=== PATIENT | female | born 1980 | race Caucasian/White ===

== ENCOUNTER → 2018-07-05 | Outpatient (CLI) | payer OTHER ==
[~2018-07-05] MED LIST: MOTRIN 600600 MG/TAB PO; PRENATAL1 TA2 PO
== END ==
LOC: MC.RAD 12:30
DX: N63.23 Unspecified lump in the left breast, lower outer quadrant (principal)
CPT/HCPCS: G0279

== ENCOUNTER → 2019-10-12 | Outpatient (CLI) | payer OTHER | LOC: MC.RAD 16:05 | DX: Z12.31 Encounter for screening mammogram for malignant neoplasm of breast (principal) ==

== ENCOUNTER → 2020-11-15 | Outpatient (CLI) | payer OTHER ==
[~2020-11-15] MED LIST changes: +FIORICET 325 MG1 TA1 PO; +SPRINTEC 35 MCG1 TAB PO
== END ==
LOC: MC.RAD 14:15
DX: Z12.31 Encounter for screening mammogram for malignant neoplasm of breast (principal)

== ENCOUNTER 2021-04-21 10:28 | Emergency (ER) | payer OTHER ==
[~2021-04-21] VITALS: Ht 172.7 cm; Wt 81.8 kg
[~2021-04-21 10:28] MED LIST changes: -FIORICET 325 MG1 TA1 PO; -SPRINTEC 35 MCG1 TAB PO
[2021-04-21 10:37] VITALS: TEMP 98.7
[2021-04-21 10:58] LABS: COLLECTION METHOD CLEAN CATCH
[2021-04-21 11:09] LABS: PH 6 (5-8); URINE APPEARANCE Clear; URINE BACTERIA None Seen /hpf; URINE BILIRUBIN Negative (NEGATIVE); URINE BLOOD 1+ (NEGATIVE); URINE COLOR Straw; URINE GLUCOSE Negative (NEGATIVE); URINE KETONE Negative (NEGATIVE); URINE LEUKOCYTE ESTERASE Negative (NEGATIVE); URINE NITRATE Negative (NEGATIVE); URINE PROTEIN(semi-quant) Negative (NEGATIVE); URINE RBC 0-2 /hpf; URINE UROBILINOGEN Negative (NEGATIVE)
[2021-04-21 11:11] LABS: MUCOUS Present /lpf; SQUAMOUS EPITHELIAL 0-2 /hpf
[2021-04-21 11:35] LABS: INR 0.9 (0.8-3.0); PROTHROMBIN TIME 10.1 SECONDS (9.7-12.8)
[2021-04-21 11:36] LABS: BASO % 0.3 % (0.0-2.0); EOS # 0.1 (0.0-0.7); GRAN # 3.8 (1.4-6.5); GRAN % 62.7 % (42.2-75.2); HEMATOCRIT 39.2 % (37.0-47.0); HEMOGLOBIN 13.1 g/dl (12.5-16.0); LYMPH # 1.8 (1.2-3.4); LYMPH % 30.1 % (20.0-51.0); MEAN CELL VOLUME 93 fl (80.0-100.0); MEAN CORPUSCULAR HEMOGLOBIN 31 pg (27.0-31.0); MEAN CORPUSCULAR HGB CONC 33 g/dl (33.0-37.0); MONO # 0.3 (0.1-0.6); MONO % 5.6 % (1.7-9.3); PLATELET COUNT 176 K/mm3 (130-400); RED BLOOD COUNT 4.22 M/mm3 (4.10-5.30); REDCELL DISTRIBUTION WIDTH-CV 12.8 % (11.5-14.5)
[2021-04-21 11:38] LABS: ALBUMIN 4.5 gm/dL (3.5-5.0); BILIRUBIN,TOTAL 0.2 mg/dL (0.0-1.0); CALCIUM 9.2 mg/dL (8.4-10.2); CREATININE, serum 0.78 (0.52-1.25); POTASSIUM 4.5 mmol/L (3.4-5.0); TOTAL PROTEIN 7.9 gm/dL (6.4-8.2)
[2021-04-21] MEDS ORDERED: SPRINTEC 35 MCG1 TAB PO (12:04)
[2021-04-21 16:28] LABS: GLUCOSE,CSF 54 mg/dL (40-70); TOTAL PROTEIN,CSF 50 mg/dL (15-45)
[2021-04-21] MEDS ORDERED: FIORICET 325 MG1 TA1 PO ×3 (17:27→18:10)
[2021-04-21 17:54] VITALS: BP 116/72; PULSE 76
[2021-04-21 19:39] LABS: CSF APPEARANCE CLEAR; CSF COLOR COLORLESS; CSF MONONUCLEAR 100 % (70-100); CSF POLYMORPHONUCLEAR 0 % (0-6); CSF RBC < 1 /mm3 (0-0)
[2021-04-21 19:40] LABS: CSF APPEARANCE CLEAR; CSF COLOR COLORLESS; CSF POLYMORPHONUCLEAR 0 % (0-6); CSF RBC 1 /mm3 (0-0)
[2021-04-21 19:41] LABS: CSF MONONUCLEAR 100 % (70-100)
== END 2021-04-21 17:56 | disposition home or self-care (01) ==
LOC: COL.ER 10:28
PROVIDERS: Personal Emergency Response Attendant; Physician Assistant
DX: R51.9 Headache, unspecified (principal); R20.2 Paresthesia of skin
CPT/HCPCS: J1200; J1885; J2765; J7030; Q9967

== ENCOUNTER → 2021-05-16 | Outpatient (CLI) | payer OTHER ==
[~2021-05-16] MED LIST changes: +FIORICET 325 MG1 TA1 PO; +SPRINTEC 35 MCG1 TAB PO
== END ==
LOC: COL.RAD 13:42
DX: R51.9 Headache, unspecified (principal)
CPT/HCPCS: A9585

== ENCOUNTER → 2021-12-04 | Outpatient (CLI) | payer OTHER | LOC: MC.RAD 15:45 | DX: Z12.31 Encounter for screening mammogram for malignant neoplasm of breast (principal) ==

== ENCOUNTER 2024-02-23 06:26 | Inpatient (IN) | payer OTHER ==
[~2024-02-23] VITALS: Ht 172.8 cm; Wt 94.1 kg
[2024-02-23] VITALS (63 sets, daily range): BP systolic 108–172; BP diastolic 55–87; PULSE 61–100; TEMP 97.8–98.1
[2024-02-23] MEDS ORDERED: LR & Oxytocin 500 ML IV SCH (06:30)
[2024-02-23] MEDS ORDERED: LR 1,000 ML IV SCH (06:30)
--- NOTE | 2024-02-23 06:30 | NUR ---
PATIENT AMBULATED ON UNIT AND TO LABOR ROOM. PATIENT DENIES LEAKING OF FLUID OR BLEEDING. PATIENT REPORTS A FEW IRREGULAR CTX OVER THE PAST FEW DAYS. PATIENT REPORTS NORMAL MOVEMENT. EFM AND TOCO INITITATED. SPO2 MONITOR INITIATED.
--- NOTE | 2024-02-23 07:52 | NUR ---
RISK ASSESSMENT COMPLETED. PATIENT REPORTS FALLING ROUGHLY TWO WEEKS AGO, AND STATES SHE JUST TRIPPED ON HER SHOE WITH HER ARMS FULL OF STUFF. THIS WAS ALSO NOTED IN HER ANTEPARTUM RECORD. PATIENT STATES THAT SHE DID NOT FALL ON ABDOMEN. SCABBED ABRASION TO KNEE AND ANKLE NOTED ON ASSESSMENT.FALL RISK ASSESSMENT TRIGGERD PATIENT HIGH RISK BUT PATIENT DETERMINED TO BE LOW RISK BY THIS RN.
[2024-02-23] MEDS ORDERED: LOVENOX 4040 MG/0.4 SQ (07:57)
[2024-02-23] MEDS ORDERED: COLACE 100100 MG/CAP PO (07:57)
--- NOTE | 2024-02-23 09:23 | NUR ---
AT BEDSIDE. FHR TRACING REVIEWED AND PLAN OF CARE UPDATED. SVE: /-3. PROVIDER ATTEMPTED TO BREAK WATER BUT WAS UNABLE TO DUE TO ONLY BEING DILATED TO 1CM.
[2024-02-23 09:31] LABS: BASO % 0.2 % (0.0-2.0); EOS # 0.1 K/mm3 (0.0-0.7); GRAN # 9.5 K/mm3 (1.4-6.5); GRAN % 74.3 % (42.2-75.2); HEMOGLOBIN 10.4 g/dl (12.5-16.0); LYMPH % 15.3 % (20.0-51.0); MEAN CELL VOLUME 88 fl (80.0-100.0); MEAN CORPUSCULAR HEMOGLOBIN 30 pg (27-31); MEAN CORPUSCULAR HGB CONC 33 g/dl (33.0-37.0); MEAN PLATELET VOLUME 11.8 fl (7.4-10.4); PLATELET COUNT 166 K/mm3 (130-400); RED BLOOD COUNT 3.53 M/mm3 (4.10-5.30); REDCELL DISTRIBUTION WIDTH-CV 14.4 % (11.5-14.5)
[2024-02-23 09:33] LABS: HEMATOCRIT 31.1 % (37.0-47.0)
--- NOTE | 2024-02-23 11:10 | NUR ---
FHR TRACING RECURRENT VARIABLE DECELERATIONS TO 90S STARTING AT 1057. MATERNAL POSITION CHANGE AT 1100. FLUID BOLUS AT 1105. PITOCIN DECREASED TO 8ML/HR AT 1106. THIS RN AT BEDSIDE @ 1100 PALPATING CTX. VARIABLE DECELERATIONS ARE WITH CTX. FHR TRACING IMPROVED AND VARIABLES RESOLVED @ 1110.
[2024-02-23] MEDS ORDERED: ROPivacaine PF 0.2% 200 ML IV ONE ×2 (11:13→23:14)
[2024-02-23] MEDS ORDERED: diphenhydrAMINE 25 MG CAP PO PRN (12:00)
[2024-02-23] MEDS ORDERED: Naloxone 0.4 MG/ML VIAL IV PRN (12:00)
[2024-02-23] MEDS ORDERED: diphenhydrAMINE 50 MG/ML 1 ML VIAL IV PRN (12:00)
[2024-02-23] MEDS ORDERED: ePHEDrine 50 MG/10 ML VIAL IV PRN (12:00)
[2024-02-23] MEDS ORDERED: Ondansetron 4 MG/2 ML VIAL IV PRN (12:00)
--- NOTE | 2024-02-23 12:07 | NUR ---
AT BEDSIDE. ULTRASOUND TO CONFIRM HEAD DOWN PRESENTATION D/T TRACING FHR HIGH ON ABDOMEN. SVE @ 1211 /-3. AROM AT 1214. CLEAR FLUID. FHR TRACING REVIEWED. PROVIDER NOTIFIED OF VARIABLE DECELERATION EPIDSODE. PLAN OF CARE UPDATED.
--- NOTE | 2024-02-23 14:53 | NUR ---
AT BEDSIDE. FHR TRACING REVIEWED. PLAN OF CARE UPDATED. SVE /-2.
--- NOTE | 2024-02-23 17:00 | NUR ---
AT BEDSIDE. FHR TRACING REVIEWED. PLAN OF CARE UPDATED. PROVIDER WILL RETURN TO BEDSIDE FOLLOWING C/S OF ANOTHER PATIENT.
--- NOTE | 2024-02-23 18:15 | NUR ---
AT BEDSIDE. FHR TRACING REVIEWED. PLAN OF CARE UPDATED. LEATHA@ 1815 /2. DISCUSSED OPTIONS SUCH [employer] BALLOON, [facility] TO MONITOR STRENGTH OF CTX AND TITRATING PITOCIN ACCORDINGLY. PATIENT REQUESTING [facility] AT THIS TIME.
--- NOTE | 2024-02-23 22:00 | NUR ---
2144: DR GRACE AT THE BEDSIDE DISCUSSING POC WITH PT. CONSENT FOR SVE OBTAINED. 2152: SVE /-[address] GRACE, RN RECEIVES VERBAL ORDER TO DECREASE PITOCIN TO 14 mU AT THIS TIME. 2154: PITOCIN TO 14 mU AT THIS TIME. PT REPOSITIONED TO HER RIGHT SIDE WITH A PEANUT BALL UNDER HER LEFT KNEE.
[2024-02-24] VITALS (49 sets, daily range): BP systolic 102–139; BP diastolic 52–110; PULSE 62–111; TEMP 97.9–98.4
--- NOTE | 2024-02-24 01:15 | NUR ---
Interuptions in tracing during this time period due to maternal position. RN unable to determine decels and RN at the bedside adjusting US.
--- NOTE | 2024-02-24 02:10 | NUR ---
New bag of pitocin started at this time at 2 mU. Pt currently resting in bed. Pt somewhat comfortable, but does report more back discomfort and just overall tiredness at this time. SCD's also placed on pt due to her hx of thrombosis.
--- NOTE | 2024-02-24 02:30 | NUR ---
RN unable to determine decels during this tracing due to maternal position and movement. US adjusted to obtain FHT.
--- NOTE | 2024-02-24 05:45 | NUR ---
Dr Dailey given update on pt and status and informed of pt wishes to stop pitocin at this time. Dr Dailey updated on interventions done during the night and verbal orders received to stop pitocin at this time and Dr Dailey would be in to see the pt around 0700 to discuss plan of care. Pitocin stopped at 0545 and pt informed of the plan of care.
--- NOTE | 2024-02-24 07:35 | NUR ---
DR. GRACE AT BEDSIDE. PT REQUESTING C/S AT THIS TIME. DR. GRACE DISCUSSING OPTIONS, PT DOES NOT WANT TO HEAR OPTIONS, JUST WANTS C/S. DR. GRACE DISCUSSED RISKS. PT AGREES. CONSENT SIGNED. STAFF NOTIFIED.
[2024-02-24] MEDS ORDERED: Chloroprocaine PF 3% (30 MG/ML) 20 ML VIAL ONE (07:49)
[2024-02-24] MEDS ORDERED: Phenylephrine 10 MG/ML VIAL ONE (07:54)
[2024-02-24] MEDS ORDERED: NS 20 ML IV ONE (07:54)
[2024-02-24] MEDS ORDERED: Ondansetron 4 MG/2 ML VIAL ONE (07:56)
[2024-02-24] MEDS ORDERED: LR 1,000 ML IV ONE (08:13)
[2024-02-24] MEDS ORDERED: Oxytocin 10 UNITS/ML VIAL ONE (08:23)
[2024-02-24] MEDS ORDERED: Meperidine 50 MG/ML 1 ML VIAL ONE (08:32)
[2024-02-24] MEDS ORDERED: Ketorolac 60 MG/2 ML VIAL IM ONE (08:33)
[2024-02-24] MEDS ORDERED: Ondansetron 4 MG/2 ML VIAL IV PRN (09:00)
[2024-02-24] MEDS ORDERED: Magnes Hydrox (MOM) 80 MG/ML 30 ML CUP PO PRN (09:00)
[2024-02-24] MEDS ORDERED: LR 1,000 ML IV PRN (09:00)
[2024-02-24] MEDS ORDERED: Loratadine 10 MG TAB PO PRN (09:00)
[2024-02-24] MEDS ORDERED: Naloxone 0.4 MG/ML VIAL IV PRN (09:00)
[2024-02-24] MEDS ORDERED: Measles/Mumps/Rubella Virus Vaccine Live w Diluent 0.5 ML VIAL SQ SCH (09:00)
[2024-02-24] MEDS ORDERED: oxyCODONE/Acetaminophen 5-325 MG TAB PO PRN (09:00)
[2024-02-24] MEDS ORDERED: PERCOCET 325 MG1 TA2 PO (10:42)
[2024-02-24] MEDS ORDERED: IBU800 M1 PO (10:42)
[2024-02-24] MEDS ORDERED: Ibuprofen 800 MG TAB PO SCH (15:00)
[2024-02-24] MEDS ORDERED: Sennosides/Docusate 8.6-50 MG TAB PO SCH (17:00)
[2024-02-24] MEDS ORDERED: traZODone 50 MG TAB PO PRN (21:00)
[2024-02-25 00:30] VITALS: BP 106/58; PULSE 88; TEMP 98.3
[2024-02-25 06:30] VITALS: BP 101/59; PULSE 72; TEMP 98.4
[2024-02-25] MEDS ORDERED: LOVENOX 4040 MG/0.4 SQ (09:03)
[2024-02-25 15:31] LABS: BASO % 0.2 % (0.0-2.0); EOS # 0.3 K/mm3 (0.0-0.7); EOS % 1.5 % (0.0-4.0); GRAN # 12.6 K/mm3 (1.4-6.5); GRAN % 77.5 % (42.2-75.2); LYMPH # 2.3 K/mm3 (1.2-3.4); LYMPH % 13.8 % (20.0-51.0); MEAN CELL VOLUME 91 fl (80.0-100.0); MEAN CORPUSCULAR HGB CONC 32 g/dl (33.0-37.0); MEAN PLATELET VOLUME 11.3 fl (7.4-10.4); MONO % 6.2 % (1.7-9.3); PLATELET COUNT 162 K/mm3 (130-400); RED BLOOD COUNT 2.96 M/mm3 (4.10-5.30); REDCELL DISTRIBUTION WIDTH-CV 14.9 % (11.5-14.5)
[2024-02-25 15:50] LABS: HEMOGLOBIN 8.7 g/dl (12.5-16.0); MEAN CORPUSCULAR HEMOGLOBIN 29 pg (27-31)
[2024-02-25 17:00] VITALS: BP 129/68; PULSE 86
--- NOTE | 2024-02-25 20:00 | NUR ---
PT WANTING TO GET SOME SLEEP. VS DONE, BABY TAKEN TO [facility] PER HER REQUEST.
[2024-02-25 20:06] VITALS: BP 120/70; PULSE 76; TEMP 98.1
[2024-02-26 08:07] VITALS: BP 148/78; PULSE 89; TEMP 98.7
== END 2024-02-26 13:25 | disposition home or self-care (01) | DRG 788 ==
LOC: LDR 06:26 → OB 06:26
PROVIDERS: ADMIT Student in an Organized Health Care Education/Training Program
PROC: 10D00Z1 Extraction of Products of Conception, Low, Open Approach (ICD-10-PCS; principal; 2024-02-24)
PROC: 3E033VJ Introduction of Other Hormone into Peripheral Vein, Percutaneous Approach (ICD-10-PCS; 2024-02-24)
PROC: 10907ZC Drainage of Amniotic Fluid, Therapeutic from Products of Conception, Via Natural or Artificial Opening (ICD-10-PCS; 2024-02-24)
DX: O99.02 Anemia complicating childbirth (principal); D64.9 Anemia, unspecified; O62.1 Secondary uterine inertia; O69.81X0 Labor and delivery complicated by cord around neck, without compression, not applicable or unspecified; Z23 Encounter for immunization; Z37.0 Single live birth; Z3A.39 39 weeks gestation of pregnancy; Z86.718 Personal history of other venous thrombosis and embolism; Z79.01 Long term (current) use of anticoagulants
CPT/HCPCS: J0690; J1650; J1885; J2175; J2371; J2401; J2405; J2590; J2795; J7120